=== PATIENT | male | born 1945 | race African-American/Black ===

== ENCOUNTER 2017-01-23 16:26 | Emergency (ER) | payer OTHER ==
[~2017-01-23] VITALS: Ht 185.4 cm; Wt 92.0 kg
[2017-01-23] MEDS ORDERED: ACAR25TA9 PO (16:35)
[2017-01-23] MEDS ORDERED: AMLO5TAB2 PO (16:35)
[2017-01-23] MEDS ORDERED: INSU300I SC (16:35)
[2017-01-23] MEDS ORDERED: ATOR80TA75 PO (16:35)
[2017-01-23] MEDS ORDERED: CARV6.252 PO (16:35)
[2017-01-23] MEDS ORDERED: METF10002 PO (16:35)
[2017-01-23] MEDS ORDERED: LISI40TA PO (16:35)
[2017-01-23] MEDS ORDERED: FAMOTIDINE 20 MG/2 ML ONE (16:48)
[2017-01-23] MEDS ORDERED: methylPREDNISolone SOD SUCC 125 MG/2 ML ONE (16:48)
[2017-01-23] MEDS ORDERED: PLEASE ENTER ALLERGIES MC SCH ×2 (17:00)
[2017-01-23] MEDS ORDERED: methylPREDNISolone SOD SUCC 125 MG/2 ML IVPush ONE (17:00)
[2017-01-23] MEDS ORDERED: FAMOTIDINE 20 MG/2 ML IVPush ONE (17:00)
[2017-01-23] MEDS ORDERED: SODIUM CHLORIDE FLUSH 10ML SYR IVF ONE (17:00)
[2017-01-23 18:58] VITALS: BP 148/95
== END 2017-01-23 19:02 | disposition home or self-care (01) ==
LOC: ED 18:56
DX: T78.3XXA Angioneurotic edema, initial encounter (principal); T46.4X5A Adverse effect of angiotensin-converting-enzyme inhibitors, initial encounter; E11.9 Type 2 diabetes mellitus without complications; I10 Essential (primary) hypertension; E78.5 Hyperlipidemia, unspecified; Y92.9 Unspecified place or not applicable
CPT/HCPCS: 96374; 96375; 99284; J2930; S0028

== ENCOUNTER 2017-01-28 16:26 | Emergency (ER) | payer OTHER ==
[~2017-01-28] VITALS: Ht 185.4 cm; Wt 91.0 kg
[~2017-01-28 16:26] MED LIST: ACAR25TA9 PO; AMLO5TAB2 PO; ATOR80TA75 PO; CARV6.252 PO; INSU300I SC; LISI40TA PO; METF10002 PO
[2017-01-28 17:23] LABS: BLOOD UREA NITROGEN 14 mg/dL (7-18)
[2017-01-28] MEDS ORDERED: LIDOCAINE 1%, 20ML SQ ONE (19:00)
[2017-01-28] MEDS ORDERED: LIDOCAINE 1%, 20ML ONE (19:02)
[2017-01-28 20:45] VITALS: BP 136/83
== END 2017-01-28 20:47 | disposition home or self-care (01) ==
LOC: ED 16:45
DX: S01.511A Laceration without foreign body of lip, initial encounter (principal); S01.81XA Laceration without foreign body of other part of head, initial encounter; S00.33XA Contusion of nose, initial encounter; I10 Essential (primary) hypertension; E11.9 Type 2 diabetes mellitus without complications; E78.5 Hyperlipidemia, unspecified; W19.XXXA Unspecified fall, initial encounter; Y93.89 Activity, other specified; Y92.410 Unspecified street and highway as the place of occurrence of the external cause; Y99.9 Unspecified external cause status
CPT/HCPCS: 12011; 36415; 70450; 70486; 72125; 80048; 80307; 82010; 82040; 82140; 85025

== ENCOUNTER 2017-02-03 15:34 | Emergency (ER) | payer OTHER ==
[~2017-02-03] VITALS: Ht 185.4 cm; Wt 93.0 kg
[2017-02-03 15:45] VITALS: BP 107/72
== END 2017-02-03 16:48 | disposition home or self-care (01) ==
LOC: ED 16:42
DX: Z48.02 Encounter for removal of sutures (principal); E78.5 Hyperlipidemia, unspecified; E11.9 Type 2 diabetes mellitus without complications; I10 Essential (primary) hypertension
CPT/HCPCS: 99281